=== PATIENT | female | born 1970 | race Caucasian/White ===

== ENCOUNTER 2023-09-13 14:40 | Emergency (ER) | payer BC, SELFPAY ==
[2023-09-13 14:41] VITALS: BP 116/80
--- NOTE | 2023-09-13 16:32 | ED.GENMED ---
History of Present Illness
General
Chief Complaint: Back Pain
Source: patient
Exam Limitations: none
Time Seen by Provider: 09/13/23 16:26
Nursing documentation reviewed up to this point in time: agreed with
History of Present Illness
History of Present Illness:
Patient to ED with complaint of right lower back pain. States she woke with pain 2 days ago and pain continues to worsen. Pain radiates to right buttocks. Pain is worse with movement. No history of trauma. Taking Vicodin at home without
improvement. Brought to ED by spouse for eval. Denies fever/chills, recent illness.
Past History
Past History
ED Past Medical History: Asthma, COPD, HTN, Hypercholesterolemia and Psychiatric (bipolar)
ED Past Surgical History: Gynecological and Orthopedic
Social History
Tobacco: Smoker
Alcohol: Occasional
Drug: None
Personal:
Living: with family
Family History
Family History: Other
Review of Systems
Review of Systems
Allergies reviewed?: Yes
All Other Systems: ROS reviewed and negative except as documented in HPI and ROS
Constitutional: Reports no symptoms
EENT: Reports no symptoms
Respiratory: Reports no symptoms
Cardiac: Reports no symptoms
ABD/GI: Reports no symptoms
: Reports no symptoms
Musculoskeletal: Reports back pain (Ppain to right lower back radiating to right buttocks)
Skin: Reports no symptoms
Neurological: Reports no symptoms
Psychiatric: Reports no symptoms
Phy Exam
General Physical Exam
General Presentation: well appearing and moderate distress
General age: appears stated age
General Skin: warm and dry
General Habitus: normal
General Mental: alert
Musculoskeletal Exam
Musculoskeletal Exam: neuro vasc intact
Skin Exam
Skin Exam: normal color, warm/dry and no rash
Psychiatric Exam
Psychiatric Exam: normal mood/affect
Course
Orders/Labs/Results
Orders:
Orders
09/13/23 16:31
Dexamethasone Sod Phosphate [Decadron] 10 mg IV NOW STA
HYDROmorphone [Dilaudid] 0.5 mg IV NOW STA
Ondansetron Injectable [Zofran] 4 mg IV NOW STA
Lumbar Spine Complete, 4 View [CR Lumbar Spine Comp Min 4 Vw*] Urgent
Comment:
Reason For Exam: right low back pain
09/13/23 16:49
Urinalysis Reflex To Culture Urgent
Date Specimen was Collected: 09/13/23
Time Specimen was Collected: 16:44
Vital Signs
Initial and Last Documented VS:
Initial Vital Signs
Temp Pulse Resp BP Pulse Ox
98.0 F 68 18 116/80 96
09/13/23 14:41 09/13/23 14:41 09/13/23 14:41 09/13/23 14:41 09/13/23 14:41
Last Documented Vital Signs
Temp Pulse Resp BP Pulse Ox
98.0 F 68 18 116/80 96
09/13/23 14:41 09/13/23 14:41 09/13/23 14:41 09/13/23 14:41 09/13/23 14:41
*Radiology
Radiology exam reviewed: radiology read reviewed
*Pulse Oximetry
Patient hypoxic: no
*Critical Care Note
Total Time (30-74mins, 75-104mins- exclusive of procedures): Not Applicable
Update Note
Update Note:
Improved iwth IV pain medication. Will discharge home, follow up iwth PCP and pain management this week. UA neg UTI
ED Attending Note
-
Portions of this chart may have been created with voice recognition software.� Occasional wrong word or��sound alike� substitutions may have occurred due to the inherent limitations of voice recognition software.
Discharge Plan
Departure
Patient Disposition: Home (Routine Discharge)
Date of Disposition: 09/13/23
Time of Disposition: 17:35
Patient with high blood pressure during this ER visit?: No
Condition: Good
Covid-19: Not Applicable
Discharge Problem:
Back pain
Instructions: Low Back Pain (DC), Using Cold for Pain
Prescriptions:
No Action
hydrocodone-acetaminophen 1 TABLET tablet
1 tab PO BIDPRN PRN (Reason: moderate pain)
Patient Comments:
07/17/2021: last filled 06/20/21, 60 tabs for 30 days from [facility]
clonazepam 1 MG tablet
1 mg PO BIDPRN PRN (Reason: anxiety)
Patient Comments:
07/17/2021: last filled 05/23/21, 90 tabs for 30 days from [facility]
trazodone 150 MG tablet
150 mg PO HS
divalproex 500 MG tablet extended release 24 hr
500 mg PO BID
albuterol sulfate 1 PUFF HFA aerosol inhaler
2 puff inhalation R Q4HPRN PRN (Reason: sob/wheezing)
fluoxetine 20 MG capsule
20 mg PO DAILY
Spiriva with HandiHaler 18 MCG capsule, w/inhalation device
1 puff inhalation R DAILY
budesonide-formoterol [Symbicort] 1 PUFF HFA aerosol inhaler
2 puff inhalation R BID
propranolol 80 MG capsule,extended release 24 hr
80 mg PO DAILY
atorvastatin 40 MG tablet
40 mg PO DAILY
aspirin 81 mg Tablet,Chewable
81 mg PO DAILY
Ubrelvy 50 mg Tablet
50 mg PO DAILYPRN PRN (Reason: severe headache)
Rx Instructions:
may take second dose 2 hours later if needed
cephalexin 500 mg capsule
500 mg PO QID Qty: 28 0RF
prednisone 10 mg Tablet
See Rx Instructions .ROUTE .COMPLEX Qty: 30 0RF
Rx Instructions:
Take By Mouth:
40 mg daily x3 days, 30 mg daily x3 days,
20 mg daily x3 days, 10 mg daily x3 days.
amoxicillin-pot clavulanate 875-125 mg tablet
1 tab PO BID Qty: 19 0RF
Referrals:
Chao Temple MD [Family Provider] - Tomorrow
Interventions
Interventions:
*Risk Screen - Suicide Last Done: 09/13/23 14:41
*General Assessment Last Done: 09/13/23 14:41
*Neglect/Abuse Screening Last Done: 09/13/23 14:41
*ED COVID-19 Vaccine History Last Done: 09/13/23 14:41
ED-Musculoskeletal Assessment Last Done: 09/13/23 15:18
Discharge Date and Time
Print Language: SLOVENIAN
Musculoskeletal Injury Exam
Musculoskeletal Injury Exam
Right Lower Back:
Pain with Movement?: Moderate
Tender to palpation?: Moderate
Soft tissue swelling?: None
External deformity and angulation?: None
Joint effusion?: None
Contusion?: None
Hematoma-local bleeding into tissue?: None
Strain- Sprain- Tear (Connective tissue injury)?: Moderate
Crepitus with movement?: No
Joint instability?: No
Malalignment/deformity?: No
Range of motion: Limited
Distal skin color and temperature: normal-warm & good color
Capillary Refill: normal
Normal distal neurovascular exam?: Yes
[2023-09-13 16:55] LABS: Urine Albumin Negative (Neg - Trace); Urine Bilirubin Negative (Negative); Urine Character Clear (Clear); Urine Color Yellow; Urine Glucose Negative (Negative); Urine Ketone Negative (Negative); Urine Leukocyte Negative (Negative); Urine Nitrite Negative (Negative); Urine Occult Blood Negative (Negative); Urine Specific Gravity 1.015 (<1.030); Urine Urobilinogen Negative (Neg - 1+)
[2023-09-13] MEDS: DILAUDID 0.5 MG IV (16:57)
[2023-09-13] MEDS: DECADRON 10 MG IV (16:58)
[2023-09-13] MEDS: ZOFRAN 4 MG IV (16:58)
== END 2023-09-13 18:07 | disposition home or self-care (01) ==
LOC: EMR 14:40
PROVIDERS: Nurse Practitioner; EMERGENCY PHYSICIAN Emergency Medicine; FAMILY PHYSICIAN Family Medicine
DX: M54.50 Low back pain, unspecified (principal); I10 Essential (primary) hypertension; F17.200 Nicotine dependence, unspecified, uncomplicated
CPT/HCPCS: 99284; 96374; 96375 ×2; 72110; 81003